=== PATIENT | female | born 1990 | race Hispanic/Latino ===

== ENCOUNTER 2019-11-20 18:42 | Inpatient (IN) | payer BC, OTHER ==
[2019-11-20] MEDS ORDERED: Morphine 4 MG/ML VIAL ONE (19:02)
[2019-11-20] MEDS ORDERED: Ondansetron PF 4 MG/2 ML Vial ONE (19:02)
[2019-11-20 19:07] LABS: #Eosinphils 0.2 thou/uL (0.0-0.7); #Lymphocytes 2.4 thou/uL (1.20-3.40); #Monocytes 0.9 thou/uL (0.11-0.59); #Neutrophils 7.7 thou/uL (1.40-6.50); %Basophils 0.3 % (0.0-1.0); %Eosinophils 1.6 % (0.0-10.0); %Lymphocytes 21.2 % (21.0-51.0); %Monocytes 8.2 % (0.0-10.0); %Neutrophils 68.7 % (42.0-75.0); Hemoglobin 12.4 g/dL (12.0-16.0); Mean Corpuscular HGB CONC 33.8 g/dL (32.0-36.0); Mean Corpuscular Hemoglobin 31.3 pg (27.0-31.0); Mean Corpuscular Volume 92.5 fL (78.0-98.0); Platelet Count 251 thou/uL (130-400); RBC Distribution Width 12.2 % (11.5-14.5); Red Blood Cell (RBC) Count 3.98 mill/uL (4.20-5.40); White Blood Cell (WBC) Count 11.3 thou/uL (4.8-10.8)
[2019-11-20 19:16] LABS: BHCG - Serum Negative (NEGATIVE); Pregs Control Background? CLEAR/WHITE (CLR/WHITE); Pregs Control Bar Appear? YES (CONTROL BAR)
[2019-11-20 19:31] LABS: ALT (SGPT) 24 U/L (8-55); AST (SGOT) 24 U/L (5-34); Albumin 3.8 g/dL (3.5-5.0); Alkaline Phosphatase 105 U/L (40-110); Anion Gap 13 mmol/L (10-20); BUN (Urea Nitrogen) 7 mg/dL (7.0-18.7); Bilirubin, Total 0.7 mg/dL (0.2-1.2); CK (CPK) 52 U/L (29-168); Calc. Creatinine Clearance 0 mL/min (70-130); Calcium 8.8 mg/dL (7.8-10.44); Carbon Dioxide 27 mmol/L (22-29); Chloride 100 mmol/L (98-107); Estimated GFR-MDRD Greater than 90; Globulin 4.1 g/dL (2.4-3.5); Glucose 112 mg/dL (70-105); Lipase 31 U/L (8-78); Potassium 3.6 mmol/L (3.5-5.1); Protein, Total 7.9 g/dL (6.0-8.3); Sodium 136 mmol/L (136-145)
--- NOTE | 2019-11-20 19:34 | ULT ---
US Gallbladder RUQ History: Pain Comparison: Ultrasound 2014 Findings: Real-time grayscale and color evaluation right upper quadrant of the abdomen was performed. Diffuse increased hepatic echotexture. Pancreas not well seen nor is the aorta or IVC. There is cholelithiasis. Low-grade pericholecystic fluid. Gallbladder is distended. Right kidney is without mass, hydronephrosis, or abnormal calcifications. The portal vein appears be patent with antegrade flow. Common bile duct not well seen. No intrahepati c biliary dilatation. Impression: 1. Gallbladder distention with low-grade pericholecystic fluid and numerous cholelithiasis. Findings can be seen with early cholecystitis or nothing by mouth status as the wall thickness is normal. 2. hepatomegaly with diffuse hepatic steatosis.
[2019-11-20] MEDS ORDERED: Piperacillin/Tazobactam 4.5 GM VIAL ONE (20:19)
[2019-11-20 21:43] LABS: Bilirubin Negative (Negative); Blood, Urine Negative (Negative); Clarity Clear (Clear); Glucose, Urine (Dipstick) Normal (Negative); Leukocyte Negative Leu/uL (Negative); Nitrite Negative (Negative); Protein, Urine (Dipstick) Negative (Neg-Trace); Urobilinogen Normal mg/dL (Less than 2)
[2019-11-20] MEDS ORDERED: Ondansetron ODT 4 MG TAB SL PRN (22:03)
[2019-11-20] MEDS ORDERED: Ondansetron PF 4 MG/2 ML Vial IVP PRN (22:03)
[2019-11-20] MEDS ORDERED: Morphine 4 MG/ML VIAL SLOW IVP PRN (22:04)
[2019-11-20] MEDS: D5 1/2 NS w/20 mEq KCL 1,000 ML IV SCH (22:56)
[2019-11-21 00:48] VITALS: BMI 40.6
[2019-11-21] MEDS ORDERED: Piperacillin/Tazobactam 4.5 GM in Sodium Chloride 0.9% 100 ML IVPB SCH (04:00)
[2019-11-21] MEDS: D5 1/2 NS w/20 mEq KCL 1,000 ML IV SCH ×3 (06:34→18:52)
[2019-11-21 08:32] LABS: ALT (SGPT) 33 U/L (8-55); AST (SGOT) 36 U/L (5-34); Albumin 3.2 g/dL (3.5-5.0); Alkaline Phosphatase 94 U/L (40-110); Anion Gap 9 mmol/L (10-20); BUN (Urea Nitrogen) 5 mg/dL (7.0-18.7); Bilirubin, Total 0.9 mg/dL (0.2-1.2); Calc. Creatinine Clearance 210 mL/min (70-130); Calcium 8.1 mg/dL (7.8-10.44); Carbon Dioxide 28 mmol/L (22-29); Chloride 103 mmol/L (98-107); Estimated GFR-MDRD Greater than 90; Globulin 3.4 g/dL (2.4-3.5); Glucose 110 mg/dL (70-105); Lipase 64 U/L (8-78); Potassium 3.9 mmol/L (3.5-5.1); Protein, Total 6.6 g/dL (6.0-8.3); Sodium 136 mmol/L (136-145)
[2019-11-21] MEDS ORDERED: Morphine 2 MG/ML SYRINGE SLOW IVP PRN (08:54)
[2019-11-21] MEDS ORDERED: Morphine 4 MG/ML VIAL SLOW IVP PRN (08:54)
[2019-11-21] MEDS ORDERED: Ondansetron PF 4 MG/2 ML Vial IVP PRN (08:55)
[2019-11-21] MEDS ORDERED: Piperacillin/Tazobactam 3.375 GM VIAL ONE (10:00)
--- NOTE | 2019-11-21 10:55 | HP ---
CHIEF COMPLAINT: Abdominal pain. HISTORY OF PRESENT ILLNESS: Ms. Coleman is a 29-year-old woman with epigastric and right upper quadrant abdominal pain radiating to her back since Sunday. She has not had any previous episodes similar to this. The pain has been fluctuating in severity, but unrelenting since it's onset. It has been accompanied by nausea and vomiting. No fevers, chills, jaundice, or icterus. No definite exacerbating symptoms. Ibuprofen helps, but the pain relief does not last. Last night, the pain got so bad that she came to the emergency room and was diagnosed with cholelithiasis and cholecystitis. She was admitted and placed on IV antibiotics. Today, the pain is better, but still present. PAST MEDICAL HISTORY: None. PAST SURGICAL HISTORY: C-sections x3. FAMILY HISTORY: None. SOCIAL HISTORY: The patient does not smoke, drink, or use illicit drugs. MEDICATIONS: None. ALLERGIES: NO KNOWN DRUG ALLERGIES. REVIEW OF SYSTEMS: A 10-system review of systems is negative except for HPI. PHYSICAL EXAMINATION: VITAL SIGNS: Temperature 98.3, heart rate 79, respirations 16, 94% saturated on room air, and blood pressure 123/85. GENERAL: Reveals a pleasant woman, in no acute distress. She is not flushed or toxic in appearance. She is not jaundiced or icteric. She is comfortable at rest. HEENT: Unremarkable. NECK: Supple without lymphadenopathy or thyroid nodules. HEART: Regular in its rate and rhythm without murmurs, rubs, or gallops. LUNGS: Clear to auscultation bilaterally. ABDOMEN: Soft and nondistended. Healed Pfannenstiel incisions. She is quite tender to palpation in the right upper quadrant, greatest in the epigastrium, but no rigidity, rebound, or guarding. There is some fullness in the right upper quadrant consistent with a distended gallbladder. No palpable hernias or masses. EXTREMITIES: Warm and well perfused without edema. NEURO: No focal deficits. PSYCHIATRIC: Alert, oriented, and appropriate. LABORATORY DATA: White count is elevated at 11.3. LFTs and lipase were normal yesterday, but AST is mildly elevated this morning. Other electrolytes are unremarkable and lipase is still normal. Urine was negative. Ultrasound showed pericholecystic fluid and stones. The common bile duct was not well seen. ASSESSMENT: Cholelithiasis and cholecystitis. I have recommended laparoscopic cholecystectomy for symptomatic relief since the common bile duct was not well seen and her AST is mildly elevated this morning. I have also recommended a cholangiogram. The procedure and its inherent risks were discussed with the patient. These risks include, but are not limited to, bleeding, infection, risks of anesthesia, damage to nearby structures including bowel, bile duct and liver, need for other procedures and need for open surgery. She understands and accepts these risks and wishes to proceed. All of her questions were answered. She is on scheduled Zosyn since her admission and this will be continued perioperatively. Job ID: [id number]
[2019-11-21] MEDS ORDERED: Fentanyl 100 MCG/2 ML VIAL ONE ×2 (11:53→13:44)
[2019-11-21] MEDS ORDERED: Bupivacaine 0.25% HCL 30 ML VIAL ONE (11:59)
[2019-11-21] MEDS ORDERED: Lidocaine 1% w/Epinephrine 1:100K 20 ML VIAL ONE (11:59)
--- NOTE | 2019-11-21 12:13 | PDOC.OP ---
Operative Note - Operative Note Operative Note: DATE OF PROCEDURE: 11/21/2019 PROCEDURES: Laparoscopic cholecystectomy with intraoperative cholangiogram. SURGEON: Poonam Jamison M.D. PREOPERATIVE DIAGNOSIS: Cholelithiasis, cholecystitis POSTOPERATIVE DIAGNOSIS: Cholelithiasis, cholecystitis FINDINGS: Hydropic obstructed gallbladder filled with innumerable stones, acutely inflamed and edematous. Normal intraoperative cholangiogram HISTORY: Patient with signs and symptoms of cholecystitis. Laparoscopic cholecystectomy was recommended for symptomatic relief and prevention of future episodes. Intraoperative cholangiogram was also recommended due to poor visualization of the common duct and mild AST elevation. PROCEDURE: After informed consent was obtained and appropriate preoperative antibiotics were administered, the patient was taken to the operating room and placed in the supine position and general endotracheal anesthesia was administered. The stomach was decompressed with an OG tube and the abdomen was prepped and draped in standard sterile fashion. Local anesthesia was infused to the skin and subcutaneous tissues at the umbilical level. A transverse skin incision was made. The fascia was elevated and a Veress needle was placed into the abdominal cavity without difficulty. Opening pressure was 7, consistent with the patient's body habitus, and carbon dioxide gas easily insufflated to an intra-abdominal pressure of 15, which the patient tolerated well. The Veress needle was withdrawn and a [place] port advanced under direct vision. The abdominal cavity was carefully examined. There was no evidence of Veress needle or of trocar injury. Local anesthesia was infused to the skin and subcutaneous tissues at the epigastric, right upper quadrant, and right lateral abdominal sites and trocars were placed under direct vision of the laparoscope. The gallbladder was extremely distended and edematous and too tense to grasp so over 150 mL of clear colorless bile was aspirated. The fundus of the gallbladder was grasped and retracted superiorly, with difficulty due to severe fatty liver. The infundibulum was grasped and retracted laterally. Omental adhesions were cleared from the anterior gallbladder. The bottom of the gallbladder was very difficult to visualize due to the patient's obesity and fatty liver so an additional left lateral port was placed under direct vision and a retractor used to retract the duodenum inferiorly out of the field of view allowing dissection in the area of the neck of the gallbladder. The serosa was stripped inferiorly at the level of the neck of the gallbladder exposing the cystic duct and artery which were traced clearly to their insertion in the gallbladder. These were dissected free circumferentially and the cystic duct was clipped at the level of the neck of the gallbladder. The cystic artery was clipped but not divided. An incision was made in the cystic duct inferior to the clip and the cystic duct was palpated with no stones palpable. Clear bile was seen to flow from the cystic duct incision. A cholangiogram catheter was introduced and placed into the cystic duct and secured with a clip. A cholangiogram was obtained which showed an adequate length of cystic duct. There was normal filling of the common bile duct with free flow of contrast into the duodenum. There was normal retrograde flow into the common hepatic duct beyond the level of the bifurcation without filling defects. The cholangiogram catheter was removed and the cystic duct clipped below the incision in the cystic duct. The cystic duct was divided between these clips and the previously placed clip. The cystic artery was clipped and divided between the previously placed clips. The gallbladder was then dissected free of the gallbladder bed using hook electrocautery. Prior to complete removal of the gallbladder from the gallbladder bed, the area of the cystic duct and artery stumps was examined. The clips were in good position completely across these structures and there was no bleeding and no leakage of bile. The gallbladder was then placed into an EndoCatch bag and drawn out through the epigastric incision. This required extension of the skin incision and dilation of the fascial incision to allow partial passage of the gallbladder through the incision. The gallbladder was opened in the Endo Catch bag and over 100 gallstones removed before the gallbladder was decompressed enough to remove it. The epigastric trocar was replaced and the operative site easily irrigated to clear. There was no significant bleeding or spillage of bile. The epigastric trocar was removed and the fascia closed under direct laparoscopic vision with a 0 Vicryl suture on a GraNee needle in a [id number] manner with excellent technical result. The right upper quadrant and right and left lateral abdominal trocars were removed and hemostasis verified. Carbon dioxide gas was allowed to desufflate through the umbilical trocar which was then removed. The skin incisions were closed with 4-0 subcuticular Monocryl sutures and Dermabond dressings were placed. The patient was extubated and taken to the recovery room in good condition. There were no complications. ESTIMATED BLOOD LOSS: Minimal. SPECIMEN : Gallbladder and contents.
[2019-11-21] MEDS ORDERED: Iothalamate Meglumine 60% 50 ML VIAL FS ONE (12:35)
[2019-11-21] MEDS ORDERED: Ibuprofen 600 MG TAB PO PRN (14:25)
[2019-11-21] MEDS ORDERED: traMADol HCl 50 MG TAB PO PRN ×2 (14:25)
[2019-11-21] MEDS ORDERED: Ibuprofen 800 MG TAB PO PRN (14:25)
[2019-11-21] MEDS ORDERED: Ibuprofen 200 MG TAB PO PRN (14:25)
[2019-11-21] MEDS ORDERED: HYDROcodone/Acetaminophen 5/325 mg Tablet PO PRN ×2 (14:25)
[2019-11-21] MEDS ORDERED: Promethazine HCl 25 MG/ML VIAL ONE (15:00)
--- NOTE | 2019-11-21 15:16 | RAD ---
OPERATIVE CHOLANGIOGRAM: Date: 11/21/2019 Two fluoroscopic images of bile duct presented from OR. INDICATION: Intraoperative imaging during cholecystectomy procedure. FINDINGS/IMPRESSION: Images show normal opacification of the common bile duct. No filling defect identified. POS: [facility]
[2019-11-21] MEDS: Piperacillin/Tazobactam 3.375 GM in Sodium Chloride 0.9% 100 ML IVPB SCH ×2 (18:53→19:36)
[2019-11-21] MEDS ORDERED: FLU VACC QS2019-20(6MOS UP)/PF 60 MCG/0.5 ML SYRINGE IM ONE (21:00)
[2019-11-21 22:32] VITALS: BP 119/82; TEMP 98.2
== END 2019-11-21 21:20 | disposition home or self-care (01) | DRG 418 ==
LOC: ERS 18:42 → SURG B 22:09
PROVIDERS: ADMIT Surgery; ATTEND Surgery
PROC: 0FT44ZZ Resection of Gallbladder, Percutaneous Endoscopic Approach (ICD-10-PCS; principal; 2019-11-21)
PROC: BF13YZZ Fluoroscopy of Gallbladder and Bile Ducts using Other Contrast (ICD-10-PCS; 2019-11-21)
DX: K80.10 Calculus of gallbladder with chronic cholecystitis without obstruction (principal); K82.1 Hydrops of gallbladder; Z68.41 Body mass index [BMI] 40.0-44.9, adult; E66.01 Morbid (severe) obesity due to excess calories
CPT/HCPCS: 36415; 47532; 76705; 80053; 81003; 82550; 83690; 84484; 84703; 85025; 93005; 96361; 96365; 96375; 96376; J2270; J2405; J2543; J2550; J3010; J3490; S0020

== ENCOUNTER 2020-01-16 20:28 | Emergency (ER) | payer BC ==
[2020-01-16] MEDS ORDERED: Ondansetron ODT 4 MG TAB ONE (21:16)
[2020-01-16] MEDS ORDERED: Ketorolac Tromethamine 30 MG/ML VIAL ONE (21:16)
== END 2020-01-16 21:38 | disposition home or self-care (01) ==
LOC: ERS 20:28
DX: M54.5 Low back pain (principal); R11.2 Nausea with vomiting, unspecified
CPT/HCPCS: 96372; 99283; J1885; Q0162

== ENCOUNTER 2022-04-16 08:58 | Emergency (ER) | payer BC | END 2022-04-16 09:45 | disposition home or self-care (01) | LOC: ERS 08:58 | DX: J02.9 Acute pharyngitis, unspecified (principal); Z20.822 Contact with and (suspected) exposure to COVID-19 | CPT/HCPCS: 87430; 99283; U0003; U0005 ==

== ENCOUNTER 2022-05-17 13:09 | Emergency (ER) | payer BC | END 2022-05-17 14:42 | disposition home or self-care (01) | LOC: ERS 13:09 | DX: U07.1 COVID-19 (principal); J06.9 Acute upper respiratory infection, unspecified | CPT/HCPCS: 99283; U0003; U0005 ==